=== PATIENT | male | born 1975 | race Caucasian/White ===

== ENCOUNTER 2019-11-16 14:22 | Outpatient (CLI) | payer BC, SELFPAY ==
--- NOTE | 2019-11-16 14:34 | XR_ITS ---
WS: [id number] LEFT FOOT: 3 VIEW(S) TECHNIQUE: AP, oblique and lateral. HISTORY: PAIN IN LEFT FOOT COMPARISON: None available. No acute fracture or dislocation. Mild hallux valgus. Very small calcaneal spur. No soft tissue abnormality or bone destruction. XR/XR foot LT min 3V* [id number] IMPRESSION: Mild hallux valgus.
== END 2019-11-16 14:23 | disposition home or self-care (01) ==
LOC: RADWPI 14:28
PROVIDERS: Family Provider Family Medicine; PCP Family Medicine; Visit Provider Nurse Practitioner Family
DX: M79.672 Pain in left foot (principal); M20.12 Hallux valgus (acquired), left foot
CPT/HCPCS: 73630

== ENCOUNTER 2023-10-22 09:02 | Day surgery (SDC) | payer BC, SELFPAY ==
[2023-10-22 09:15] VITALS: BP 148/97; PULSE 83; RESP 18; TEMP 36.3; O2SAT 97; BMI 36.0
[2023-10-22] MEDS: sodium chloride 0.9% 1,000 ML 30 ML IV (09:25)
--- NOTE | 2023-10-22 09:37 | ANES.PREANE2 ---
Pre-Anesthetic Assessment Height/Weight: Height 1.7 m Weight 104.326 kg Temp Pulse Resp BP Pulse Ox O2 Del Method 97.3 F L 83 18 148/97 97 Room Air 10/22/23 09:15 10/22/23 09:15 10/22/23 09:15 10/22/23 09:15 10/22/23 09:15 10/22/23 09:15 Preop Diagnosis: GERD, screening Operation Date: 10/22/23 10:00 Proposed Procedures p EGD(Not Applicable) - Emeterio Marshall DO s Colonoscopy(Not Applicable) - Emeterio Marshall DO Familial anesthetic complications: father woke up during anesthesia Was Beta Cory taken within 24 hours: Yes Was Clonidine taken within 24 hours: N/A Last intake: Intake Last Liquid Date 10/21/23 Last Liquid Time 17:00 Last Solid Date 10/20/23 Last Solid Time 17:00 Last Intake: 17:00 Social No alcohol and No tobacco Exam alert, oriented x 3, clear to auscultation bilaterally and regular rate & rhythm Airway Submandibular: within normal limits Cervical ROM: within normal limits Mallampati: Class III Dentition: full Pulmonary None reported CV/HEM Hypertension None reported Hepatic None reported GI Gastroesophageal Reflux Disease (controlled) Metabolic None reported Musc/skel Lower Back Pain Neuropsych Headache Anesthetic Plan ASA status: 3 Anesthesia: MAC Risk of > 500 ml blood loss (7ml/kg in children): No Medications/Allergies Home Medications Medication Instructions Recorded Confirmed Last Taken Type atenolol 50 mg tablet 50 mg PO BEDTIME migraines 09/12/23 10/22/23 10/21/23 History atorvastatin 20 mg tablet 20 mg PO BEDTIME 09/12/23 10/22/23 10/21/23 History fenofibrate 160 mg tablet 160 mg PO BEDTIME 09/12/23 10/22/23 10/21/23 History losartan 100 mg tablet 100 mg PO BEDTIME 09/12/23 10/22/23 10/21/23 History pantoprazole 40 mg tablet,delayed 40 mg PO BID 6 weeks #84 tabs 09/12/23 10/22/23 10/21/23 Rx release (Protonix) Allergies Allergy/AdvReac Type Severity Reaction Status Date / Time No Known Allergies Allergy Unverified 10/22/23 09:12 Current Medications Generic Name Dose Route Start Last Admin Trade Name Freq PRN Reason Stop Dose Admin Sodium Chloride 1,000 mls @ 30 mls/hr 10/22/23 09:15 10/22/23 09:25 Sodium Chloride 0.9% IV 10/23/23 09:14 30 mls/hr .Q24H BANDAR Administration PFSH Anesthesia Family History Father Diverticulitis Heart disease Mother Hypertension Social History Smoking and tobacco/nicotine status: never used tobacco/nicotine Alcohol intake: never Data Anesthesia Cardiac Studies: No Data to Display
--- NOTE | 2023-10-22 10:26 | PM.HP ---
Providers/Chief Complaint Primary Care Provider: Ivy Alvares MD Chief Complaint: K21.9, K92.2, R10.13, Z12.11 History of Present Illness Issac Qiu is a 48 year old male Review of Systems General: Reports: 10 or more systems reviewed and unremarkable except in HPI and below Medications/Allergies Home Medications Medication Instructions Recorded Confirmed Last Taken Type atenolol 50 mg tablet 50 mg PO BEDTIME migraines 09/12/23 10/22/23 10/21/23 History atorvastatin 20 mg tablet 20 mg PO BEDTIME 09/12/23 10/22/23 10/21/23 History fenofibrate 160 mg tablet 160 mg PO BEDTIME 09/12/23 10/22/23 10/21/23 History losartan 100 mg tablet 100 mg PO BEDTIME 09/12/23 10/22/23 10/21/23 History pantoprazole 40 mg tablet,delayed 40 mg PO BID 6 weeks #84 tabs 09/12/23 10/22/23 10/21/23 Rx release (Protonix) Allergies Allergy/AdvReac Type Severity Reaction Status Date / Time No Known Allergies Allergy Unverified 10/22/23 09:12 PFSH Acute PFSH: Family History Father Diverticulitis Heart disease Mother Hypertension Social History Smoking and tobacco/nicotine status: never used tobacco/nicotine Alcohol intake: never Vitals/I&O/Wt Last Vital Signs Temp 97.3 F L 10/22/23 09:15 Pulse 83 10/22/23 09:15 Resp 18 10/22/23 09:15 BP 148/97 10/22/23 09:15 Pulse Ox 97 10/22/23 09:15 O2 Del Method Room Air 10/22/23 09:15 Weight last 48 hrs Weight 230 lb A&P Assessment and plan (1) GERD (gastroesophageal reflux disease): (2) GI bleed: (3) Epigastric pain: Plan EGD and colonoscopy Attestations Medical Necessity Statement*: Home Coding Level of Care Code Acute Code for [facility] Fwd Diagnoses GERD (gastroesophageal reflux disease) K21.9 GI bleed K92.2 Epigastric pain R10.13
--- NOTE | 2023-10-22 10:45 | ANE.PACU2 ---
Inpatient post-anesthesia follow up: Airway intact: Yes Vital signs: Temperature 97.0 F Pulse Rate 60 Respiratory Rate 18 Blood Pressure 122/85 Pulse Oximetry 96 Oxygen Delivery Me thod Room Air Oxygen Flow Rate Fraction of Inspir ed Oxygen Hydration adequate: Yes Nausea and vomiting: No Pain level: 1 Mental status: Baseline
[2023-10-22 10:48] VITALS: BP 116/73; PULSE 73; RESP 18; TEMP 36.1; O2SAT 94
[2023-10-22 10:58] VITALS: BP 120/83; PULSE 75; RESP 18; O2SAT 94
[2023-10-22 11:10] VITALS: BP 122/85; PULSE 60; RESP 18; O2SAT 96
== END 2023-10-22 11:35 | disposition home or self-care (01) ==
PROVIDERS: Family Provider Family Medicine; PCP Family Medicine; Visit Provider Surgery
PROC: 0DJ08ZZ Inspection of Upper Intestinal Tract, Via Natural or Artificial Opening Endoscopic (ICD-10-PCS; CPT 43235; principal; 2023-10-22 10:00)
PROC: 0DJD8ZZ Inspection of Lower Intestinal Tract, Via Natural or Artificial Opening Endoscopic (ICD-10-PCS; CPT 45378; 2023-10-22 10:00)
DX: K21.9 Gastro-esophageal reflux disease without esophagitis (principal); R10.13 Epigastric pain; K57.30 Diverticulosis of large intestine without perforation or abscess without bleeding; K64.8 Other hemorrhoids; I10 Essential (primary) hypertension
CPT/HCPCS: 43239; 45378; 88305; J2704; J7030